=== PATIENT | male | born 1940 | race Caucasian/White ===

== ENCOUNTER 2017-04-16 07:54 | Inpatient (IN) | payer MEDICARE ==
[~2017-04-16] VITALS: Ht 172.7 cm; Wt 98.6 kg
[~2017-04-16 07:54] MED LIST: ASPIR 8181 MG PO; BENICAR40 MG PO; BREO ELLIP1 PUFF/DOS IH; COREG25 MG PO; ELIQUIS5 MG PO; FARXIGA10 MG PO; HCTZ12.5 MG PO; HUMALOG100 UNIT/1 SQ; KEFLEX-DPS500 MG PO; LANTUS SIN100 UNITS/ SQ; LASIX DPS80 MG PO; LIPITOR10 MG PO; MYCOSTATIN PWD15 GM TP; NORVASC10 MG PO; PROAIR RESPICL90 MCG IH; STUDY DRUG PO; TOUJEO SOL300 UNIT/1 SQ; ZAROXOLYN2.5 MG PO; ZESTRIL DPS10 MG PO
--- NOTE | 2017-04-17 08:16 | ER ---
ADMIT: 04/16/2017 RM/LOC: [address] [facility] MR#: [id number] 2620 [facility] [address] [place] [phone] [facility] [address] [place] [address] Emergency Room Report SEX: M AGE: 76 : 1940 DATE: 04/16/2017 ADDENDUM: A 76-year-old white male coming in by EMS with flash pulmonary edema. He has had this before back in November of this year we do believe. CBC, chemistry, troponin normal. BNP obvious up all the time 4577. Chest x- ray shows pulmonary edema. He has an AICD pacemaker. Essentially, we gave him Lasix, sublingual nitro and then a nitro drip and he improved significantly. I spoke with Dr. Brennan. She will admit him to ICU until we can make sure we have re-stabilized him. CONDITION ON DISCHARGE: Critical, but improved. Marlon Saldaña MD/ modl JOB #: [id number] CC: Evelin Brennan MD, Attending Physician Evelin Brennan MD, Family Physician
--- NOTE | 2017-04-19 11:38 | HP ---
ADMIT: 04/16/2017 RM/LOC: 414 [facility] MR#: [id number] [id number] 2620 [facility] [address] [place], [place] [address] HUNTER OVIEDO [address] [place] [address] History and Physical SEX: M AGE: 76 : 1940 DATE OF SERVICE: CHIEF COMPLAINT: Shortness of breath. HISTORY OF PRESENT ILLNESS: Mr. Oviedo is a 76-year-old male. He has a past medical history significant for coronary artery disease, ischemic cardiomyopathy, hypertension, peripheral vascular disease, diabetes, history of left-sided CVA, who reports he was doing pretty well until yesterday, reports that he went to work and while at work, noticed that he is experiencing increasing shortness of breath. He notes that he was not having any trouble as far as any new lower extremity edema that he was aware of. He denies any chest pain or heaviness in his chest. This notes that he felt like he could not do much exertion without getting short of breath. After leaving work, he went to [employer] and then went home. He thought maybe it was due to some allergies, so he took a Claritin, reports he felt pretty nauseated after that. He laid down, went to bed, notes he got up this morning, was unable to get across his room because he was so short of breath. Therefore, he called the squad and was brought in, apparently appeared quite ill because he was in flash pulmonary edema. They went ahead and gave him oxygen as well as apparently some breathing treatments. Upon presentation to the ER, he was given 100 mg of IV Lasix and was also given IV nitro, and he is feeling better at this time. Otherwise, he reports he has not missed any of his medications. Reports that he eat english food about 2 days ago. He is currently getting his weight checked every day by the [facility] CHF monitoring, and he notes his weight has not really changed. He reports that nothing else is made his symptoms better or worse. He has no other associated symptoms. Does note that he had coughed up a little bit of yellow phlegm, but really other than that, has felt fine. PAST MEDICAL HISTORY: Significant for: 1. Diabetes mellitus, poorly controlled. 2. Coronary artery disease, status post stents about 5 years ago. 3. Ischemic cardiomyopathy with his last EF six months ago 20% to 25%. 4. Hypertension. 5. Charcot joint foot. 6. Peripheral vascular disease. 7. Status post AICD. 8. Hyperlipidemia. 9. History of left-sided CVA. 10.Paroxysmal atrial fibrillation. 11.History of COPD. SOCIAL HISTORY: Smoking: He is a former smoker, but quit over 40 years ago. He works at [employer]. He is . He occasionally drinks alcohol. FAMILY HISTORY: Positive for heart disease, cancer, diabetes. PAST SURGICAL HISTORY: He is status post carpal tunnel surgery as well as status post low back surgery. ADMIT: 04/16/2017 RM/LOC: 414 [facility] MR#: [id number] [address] [address] HUNTER OVIEDO [address] [place] [address] History and Physical SEX: M AGE: 76 : 1940 ALLERGIES: LACTOSE INTOLERANCE. MEDICATIONS: Currently are: 1. Amlodipine 10 mg p.o. daily. 2. Eliquis 5 mg p.o. b.i.d. 3. Aspirin 81 mg p.o. daily. 4. Lipitor 10 mg p.o. daily. 5. Coreg 25 mg p.o. b.i.d. 6. Farxiga or study drug p.o. daily. 7. Lasix 80 mg p.o. daily. 8. NPH 70/30, 26 units twice daily. 9. Lisinopril 10 mg p.o. daily. REVIEW OF SYSTEMS: Obtained, was otherwise as noted above. PHYSICAL EXAMINATION: GENERAL: He is alert and oriented. He probably has like 8- to 9-word dyspnea. HEENT: Pupils are equal, round, and reactive. Oropharynx has dry mucous membranes. NECK: Supple. HEART: Very distant, but normal rate. LUNGS: Have a few rales in the bases bilaterally, right greater than left. ABDOMEN: Obese and soft. Bowel sounds are present. EXTREMITIES: Lower extremities have some chronic venous stasis changes as well as 2+ bilateral pitting edema and some pedal edema as well. ASSESSMENT AND PLAN: 1. Acute shortness of breath. At this time, appears to be acute systolic on chronic systolic congestive heart failure. Uncertain if this is due to ADMIT: 04/16/2017 RM/LOC: 414 [facility] MR#: [id number] [address] [address] HUNTER OVIEDO [address] [place] [address] History and Physical SEX: M AGE: 76 : 1940 medical noncompliance or dietary indiscretion. We will go ahead and check cardiac enzymes to make sure there is no new ischemic injury. We will watch his fluid intake. We will try to get his outside weights from [facility]. We will go ahead and continue his Lasix on a daily dose that we will dose each morning. 2. Diabetes mellitus. Continue his home routine as well as some Accu-Cheks and supplemental sliding scale if needed. 3. Hypertension. 4. Known coronary disease. 5. History of cerebrovascular accident. Continue with apixaban. At this time, the patient seems to be relatively stable. He does wish to be a DNR/DNI which I discussed with him. Evelin Brennan MD/ neva JOB #: [id number] CC: Evelin Brennan, Attending Physician Evelin Brennan, Family Physician
[2017-04-20] MEDS ORDERED: NORVASC DPS10 MG PO (16:59)
[2017-04-20] MEDS ORDERED: ZESTRIL DPS10 MG PO (17:00)
[2017-04-20] MEDS ORDERED: CARVEDILOL25 MG PO (17:00)
[2017-04-20] MEDS ORDERED: ASPIR 8181 MG PO (17:01)
[2017-04-20] MEDS ORDERED: LASIX DPS80 MG PO (17:01)
[2017-04-20] MEDS ORDERED: ELIQUIS5 MG PO (17:02)
[2017-04-20] MEDS ORDERED: LIPITOR DPS10 MG PO (17:02)
[2017-04-20] MEDS ORDERED: FARXIGA10 MG PO (17:02)
[2017-04-20] MEDS ORDERED: NOVOLIN 70100 UNITS/ SQ ×2 (17:03→17:04)
[2017-04-20] MEDS ORDERED: ZAROXOLYN2.5 MG PO (17:03)
--- NOTE | 2017-04-27 14:37 | CO ---
ADMIT: 04/16/2017 RM/LOC: 414 [facility] MR#: [id number] [address] [address] HUNTER OVIEDO [address] [place] [address] Consultation SEX: M AGE: 77 : 1940 DATE OF CONSULTATION: 04/17/2017 ATTENDING PHYSICIAN: Evelin Brennan CONSULTING PHYSICIAN: Khari Gorman MD REASON FOR CONSULT: Elevated troponin. This is Nancy Sanchez RN, scribing for Dr. Shawn Gorman. HISTORY OF PRESENT ILLNESS: Hunter is a pleasant 77-year-old gentleman I have been asked to see in Cardiology consultation by Dr. Evelin Brennan for elevated troponin. He follows regularly at [facility] and he follows with me. He was last seen in clinic on 01/11. He has history of coronary artery disease, status post percutaneous coronary intervention in 1999 and 2000. Last cardiac catheterization was in 2013, showing nonobstructive coronary disease. Last echocardiogram was in November of this year, showing ejection fraction of 20%, which has been his baseline since 2008. He is status post BiV ICD with his history of cardiomyopathy. He has a history of left bundle branch block. He had stress test after hospitalization in the end of November for chest discomfort, showing kushal-infarct ischemia. He also has history of paroxysmal atrial fibrillation. Cardiac risk factors include hyperlipidemia, diabetes, and hypertension, as well as former tobacco use. Hunter presented to [facility] yesterday with increased shortness of breath. He felt like he had his usual activity levels over the weekend. He was working at [employer] both days. Sunday night, he got home and he was a little bit tired, but yesterday morning, he woke up and he was significantly short of breath and felt very weak. He stated that he did not think that he could get out of a chair. He denies any chest pain, pressure, or tightness, palpitations, or presyncope, but did note increased edema. He weighs himself regularly. His weights have been right around 200 pounds. About 3 days prior to presentation, he had noticed about a 3 to 4 pound weight gain. He did have Iranian food a few days ago as he says he does eat that occasionally despite the amount of sodium it has. He was diagnosed with flash pulmonary edema. He got nebulizer treatments and IV Lasix as well as sublingual nitroglycerin and felt better with that. Currently, he is chest pain-free. He reports that while he still has some shortness of breath and peripheral edema, his symptoms have improved. Cardiac enzymes were checked showing elevated troponin with peak troponin on the fourth set at 3.25 trending down now to 2.13. CK is 198 with an MB of 5.5, peak of 9.0 on yesterday's labs. His creatinine is elevated at 1.4. EKG does not show any significant ST-T changes. PAST MEDICAL HISTORY: 1. Ischemic cardiomyopathy, status post BiV ICD. 2. Left bundle branch block. 3. Paroxysmal atrial fibrillation. ADMIT: 04/16/2017 RM/LOC: 414 [facility] MR#: [id number] [facility] [address] [address] HUNTER OVIEDO [facility] [place] [address] Consultation SEX: M AGE: 77 : 1940 4. Coronary artery disease, status post PCI. 5. Peripheral vascular disease. 6. Former tobacco use. 7. Hypertension. 8. Hyperlipidemia. 9. Diabetes. 10.Charcot joint in the foot. 11.Anemia. 12.History of left-sided stroke. 13.COPD. 14.Obstructive sleep apnea. 15.Glaucoma. PAST SURGICAL HISTORY: Includes; 1. Carpal tunnel surgery. 2. Low back surgery. ALLERGIES: LACTOSE INTOLERANCE. MEDICATIONS: Current medications include; 1. Aspirin 81 daily. 2. Coreg 25 b.i.d. 3. Lipitor 10 daily. 4. Norvasc 10 daily. 5. Zestril 10 daily. 6. NovoLog 70/30 b.i.d., 26 units NovoLog sliding-scale insulin before meals and at bedtime. 7. Heparin drip per protocol. FAMILY HISTORY: Positive family history of mother having heart disease, diabetes, and cancer. No family history of stroke. SOCIAL HISTORY: Hunter is . 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 He denies any history of drug use. He has occasional alcohol use. He has former tobacco use, none currently, and drinks coffee on a regular basis. REVIEW OF SYSTEMS: GENERAL: Reports increased fatigue over the last 48 hours. No recent fever, chills, or sweats. He has had about 3 to 4 pounds weight gain in last 3 to 4 days. EYES: History of glaucoma. He wears corrective lenses. Denies any vision changes. THROAT MOUTH AND EARS: Denies hearing loss or problems with nose, mouth or throat. RESPIRATORY: History of obstructive sleep apnea. History of COPD. He denies any hemoptysis. GASTROINTESTINAL: Denies heartburn or difficulty swallowing. No change in bowel habits. Denies dark or bloody stools. No history of ulcers, hiatal hernia, or gallbladder or liver disease. ADMIT: 04/16/2017 RM/LOC: 414 [facility] MR#: [id number] 2620 [facility] [address] [place] [phone] HUNTER OVIEDO [address] [place] [address] Consultation SEX: M AGE: 77 : 1940 GENITOURINARY: Denies dysuria, hematuria, nocturia, urinary tract infection, or kidney stones. Denies history of renal insufficiency or failure. MUSCULOSKELETAL: History of Charcot joint in his foot. Denies any current muscle or joint pains. ENDOCRINE: History of diabetes. Denies thyroid problems. HEMATOLOGY: Denies history of anemia. Denies any cancer. NEUROLOGIC: History of left-sided stroke. Denies any seizure disorder. PSYCHIATRIC: Denies history of mental illness or feelings of depression. PHYSICAL EXAMINATION: VITAL SIGNS: Blood pressure 120/64, heart rate 77, respirations 18, temperature 97.6, oxygenation 93% on O2. SKIN: [place], warm and dry. EYES: Sclerae clear. No xanthelasmas. ENT: Oral mucosa is pink and moist. No jugular venous distention or carotid bruits. LUNGS: Coarse breath sounds bilaterally at the bases. HEART: Regular rate and rhythm. Normal S1, S2. No murmurs, rubs or gallops. ABDOMEN: Soft and nontender. MUSCULOSKELETAL: Gait is normal. EXTREMITIES: No cyanosis or clubbing. Trace edema bilaterally. PSYCHIATRIC: Alert and oriented. Mood and affect are appropriate. DIAGNOSTIC DATA: Chest x-ray showed likely resolving edema with no pleural effusion. Sodium 140, potassium 4.0, BUN 31, creatinine 1.4, glucose 162, magnesium 2.6, CK 198, MB 5.5. Troponin 2.13 on fifth set. ProBNP 4577. White blood cell count 9.7, hemoglobin 15.4, hematocrit 47.6, platelets 161, hemoglobin A1c 9.6. ASSESSMENT AND PLAN: 1. Acute on chronic systolic heart failure. 2. Coronary artery disease. 3. Abnormal Cardiolite. 4. Abnormal troponin. 5. Permanent pacemaker. 6. Paroxysmal atrial fibrillation. 7. Hypertension. ADMIT: 04/16/2017 RM/LOC: 414 [facility] MR#: [id number] [address] [address] HUNTER OVIEDO [address] [place] [address] Consultation SEX: M AGE: 77 : 1940 Hunter is responding to medical management of his symptoms. He has no symptoms of angina with exertion prior to presentation or since admission. I will continue to hold off on catheterization at this point given his lack of chest discomfort. I would recommend continuing diuresis with Lasix IV b.i.d. His stress showed small kushal-infarct ischemia. I will continue to follow him closely. Thank you for the consultation. I have read and agree with the documentation that has been completed regarding this visit. By signing this record, I attest that the documentation was completed in my physical presence and is an accurate record of the encounter. Nancy Sanchez RN / Khari Gorman MD / neva JOB #: [id number] CC: Evelin Brennan, Attending Physician Evelin Brennan, Family Physician
--- NOTE | 2017-05-23 12:15 | DS ---
ADMIT: 04/16/2017 RM/LOC: 414 [facility] MR#: [id number] [address] [address] HUNTER OVIEDO [address] [place] [address] Discharge Summary SEX: M AGE: 76 : 1940 ADMISSION DATE: 04/16/2017 DISCHARGE DATE: 04/20/2017 DISCHARGE DIAGNOSES: 1. Shortness of breath. 2. Hypertensive crisis. 3. Acute flash pulmonary edema. 4. Acute respiratory failure with hypoxemia. 5. Acute on chronic systolic CHF (congestive heart failure). 6. Hypokalemia. 7. Elevated troponin I. 8. Diabetes mellitus type 2. 9. Paroxysmal atrial fibrillation. 10.COPD (chronic obstructive pulmonary disease). 11.Glaucoma by history. 12.Left bundle branch block. 13.Obstructive sleep apnea. 14.Coronary artery disease. 15.Ischemic cardiomyopathy. 16.Peripheral vascular disease. 17.Hyperlipidemia. 18.History of nicotine dependence. 19.History of a TIA (transient ischemic attack). HOSPITAL COURSE: The patient was admitted, was actually markedly improved by the time he was seen on the floor. He had gotten some IV Lasix and some oxygen. He had a trend ox done which did show that he had some overnight nocturnal hypoxemia. He had serial cardiac enzymes which did show that they trended up and therefore cardiology consult was obtained. Cardiology did come see the patient. He was on IV heparin for 48 hours. This was then stopped. Otherwise, he was aggressively diuresed. He was weaned off his daytime oxygen. Otherwise, the patient was discharged home. DISCHARGE MEDICATIONS: ADMIT: 04/16/2017 RM/LOC: 414 [facility] MR#: [id number] [address] [address] HUNTER OVIEDO [address] [place] [address] Discharge Summary SEX: M AGE: 76 : 1940 1. Aspirin 81 mg p.o. daily. 2. Coreg 25 mg p.o. b.i.d. 3. Lipitor 10 mg p.o. daily. 4. Norvasc 10 mg p.o. daily. 5. Zestril 10 mg p.o. daily. 6. 70/30 25 units in the morning, 30 units in the evening. 7. Lisinopril 10 mg p.o. daily. 8. Lasix 80 mg p.o. daily. 9. Zaroxolyn 2.5 mg p.o. three times a week. DISCHARGE INSTRUCTIONS: BMP and magnesium next . Oxygen 2 L at night. Follow up with Dr. Evelin Brennan in one week. Evelin Brennan MD/ marthag JOB #: [id number] CC: Evelin Brennan MD, Attending Physician Evelin Brennan MD, Family Physician
== END 2017-04-20 12:10 | disposition home or self-care (01) | DRG 291 ==
LOC: ER 07:54 → 4PCU 09:25 → 3ICU 09:25 → 4PCU 18:02
PROVIDERS: ADMIT Internal Medicine
DX: I11.0 Hypertensive heart disease with heart failure (principal); J81.0 Acute pulmonary edema; J96.01 Acute respiratory failure with hypoxia; I50.23 Acute on chronic systolic (congestive) heart failure; E87.6 Hypokalemia; E11.610 Type 2 diabetes mellitus with diabetic neuropathic arthropathy; I48.0 Paroxysmal atrial fibrillation; J44.9 Chronic obstructive pulmonary disease, unspecified; R79.89 Other specified abnormal findings of blood chemistry; H40.9 Unspecified glaucoma; I44.7 Left bundle-branch block, unspecified; G47.33 Obstructive sleep apnea (adult) (pediatric); I25.10 Atherosclerotic heart disease of native coronary artery without angina pectoris; I25.5 Ischemic cardiomyopathy; I73.9 Peripheral vascular disease, unspecified; E78.5 Hyperlipidemia, unspecified; Z87.891 Personal history of nicotine dependence; Z86.73 Personal history of transient ischemic attack (TIA), and cerebral infarction without residual deficits; Z95.5 Presence of coronary angioplasty implant and graft; Z66 Do not resuscitate